=== PATIENT | male | born 1990 | race Two or more races ===

== ENCOUNTER 2021-11-28 17:38 | Emergency (ER) | payer SELFPAY ==
[~2021-11-28] VITALS: Ht 177.8 cm; Wt 75.3 kg
[2021-11-28 17:58] VITALS: BP 122/70
--- NOTE | 2021-11-28 18:00 | NUR ---
[id number] "I HAD A SEIZURE AND HIT MY HEAD" NO OBVIOUS TRAUMA WANTS TO CHECK HIS DEPAKOTE AND DILANTIN LEVEL THEN BE MEDICALLY CHECKED TO GO TO [facility]. THE PATIENT IS ALERT AND ORIENTED X3. IN ROOM AIR AND DENIES SOB. RESPIRATION REGULAR AND UNLABORED. WILL CONTINUE TO MONITOR THE PATIENT.
--- NOTE | 2021-11-28 18:07 | NUR ---
SECURITY PERSONNEL AT BEDSIDE FOR WANDING
[2021-11-28 19:26] LABS: ACETAMINOPHEN < 10 ug/ml (10-30); ALANINE AMINOTRANSFERASE 82 U/L (12-78); ALBUMIN 3.6 g/dL (3.4-5.0); ALCOHOL, BLOOD < 3 mg/dL (0-0); ALKALINE PHOSPHATASE 56 U/L (46-116); ASPARTATE AMINOTRANSFERASE 37 U/L (15-37); BILIRUBIN,DIRECT 0.1 mg/dL (0.0-0.2); BILIRUBIN,TOTAL 0.2 mg/dL (0.2-1.0); CALCIUM, SERUM 8.4 mg/dL (8.5-10.1); CARBON DIOXIDE 28 mmol/L (21-32); CHLORIDE 108 mmol/L (98-107); CREATININE 0.7 mg/dL (0.6-1.3); GLUCOSE 105 mg/dL (74-106); POTASSIUM 3.8 mmol/L (3.5-5.1); SODIUM SERUM 144 mmol/L (136-145); TOTAL PROTEIN, SERUM 6.7 g/dL (6.4-8.2); UREA NITROGEN, BLOOD 14 mg/dL (7-18)
[2021-11-28 19:42] LABS: PHENYTOIN (DILANTIN) 15.3 ug/ml (10.0-20.0)
[2021-11-28 20:06] LABS: BASOPHILS % (AUTO) 0.5 % (0.0-2.0); EOSINOPHILS % (AUTO) 1.9 % (0.0-6.0); HEMATOCRIT 41 % (39-51); HEMOGLOBIN 13.9 g/dL (13.5-17.5); LYMPHOCYTES # (AUTO) 2.2 K/uL (0.8-4.8); LYMPHOCYTES % (AUTO) 26.8 % (20.0-44.0); MEAN CORPUSCULAR HGB CONC 34 g/dl (31.0-36.0); MEAN CORPUSCULAR VOLUME 92 fL (80-96); MONOCYTES # (AUTO) 0.8 K/uL (0.1-1.30); MONOCYTES % (AUTO) 9.4 % (2.0-12.0); NEUTROPHILS # (AUTO) 5.1 K/uL (1.8-8.9); NEUTROPHILS % (AUTO) 61.4 % (43.0-81.0); PLATELET COUNT (AUTO) 173 K/uL (150-450); RED BLOOD CELL COUNT(AUTO) 4.47 MIL/uL (4.5-6.0); WHITE BLOOD COUNT (AUTO) 8.3 K/uL (4.3-11.0)
[2021-11-28] MEDS ORDERED: DIVALPROEX SODIUM 250 MG TABLET.DR PO ONE ×2 (20:42→21:00)
--- NOTE | 2021-11-28 21:02 | NUR ---
URINE SPECIMEN SENT TO LAB
[2021-11-28 21:29] LABS: BILIRUBIN,URINE SMALL (NEGATIVE); COLOR,URINE YELLOW (YELLOW); LEUKOCYTE ESTERASE ,URINE NEGATIVE (NEGATIVE); NITRITE, URINE NEGATIVE (NEGATIVE); PH,URINE 8.5 (5.0-8.0); UGLUCOSE NEGATIVE (NEGATIVE)
[2021-11-28 21:35] LABS: PROTEIN,URINE NEGATIVE (NEGATIVE)
--- NOTE | 2021-11-28 22:15 | NUR ---
pt requesting to be discharged home. pt denies si/hi. dr [place] notified.
--- NOTE | 2021-11-28 23:45 | NUR ---
Patient eloped from facility. ER MD notified.
== END 2021-11-28 23:45 | disposition home or self-care (01) ==
LOC: ER 17:48
DX: R45.851 Suicidal ideations (principal); G40.909 Epilepsy, unspecified, not intractable, without status epilepticus; R94.31 Abnormal electrocardiogram [ECG] [EKG]; F20.9 Schizophrenia, unspecified
CPT/HCPCS: 36415; 70450-TC; 80048-TC; 80076-TC; 80164-TC; 80185-TC; 84484-TC; 85025-TC; G0480